=== PATIENT | female | born 1995 | race Caucasian/White ===

== ENCOUNTER 2016-09-25 14:27 | Emergency (ER) | payer SELFPAY ==
[~2016-09-25] VITALS: Ht 154.9 cm; Wt 60.5 kg
[2016-09-25 17:52] VITALS: BP 122/76
== END 2016-09-25 17:54 | disposition home or self-care (01) ==
LOC: EMS 14:27
DX: Z11.3 Encounter for screening for infections with a predominantly sexual mode of transmission (principal)
CPT/HCPCS: 99281